=== PATIENT | male | born 1995 | race Caucasian/White ===

== ENCOUNTER 2024-12-29 07:47 | Outpatient (CLI) | payer OTHER, SELFPAY ==
--- NOTE | 2024-12-29 08:00 | CRLHL7_ITS ---
For Patients: As a result of the Century Cures Act, medical imaging exams and procedure reports are released immediately into your electronic medical record. You may view this report before your referring provider. If you have questions, please contact your health care provider. Indication: NASAL CONGESTION Technique: Performed without IV contrast Comparison: None available Findings: Frontal sinuses: Clear. Ethmoid sinuses: Clear. Maxillary sinuses: Mucosal thickening/mucous retention cyst measures 1.7 cm within the inferior left maxillary sinus. Small mucous retention cyst right maxillary sinus measures 6 millimeters. Small mucous retention cyst lateral aspect left maxillary sinus measures 5.6 millimeters. The maxillary sinus drainage pathways are patent on both sides. Sphenoid sinuses: Clear right sphenoid sinus with patency of the sinus drainage pathway. Mild mucosal thickening within the anterior left sphenoid sinus with partial obstruction of the sinus drainage pathway. Nasal Cavity: Postoperative changes of septoplasty. Asymmetry of the nasal cavity noted with the left side larger than the right side. Paradoxical turn of the right middle turbinate. 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 Multiple screws are located within the maxilla. Impression: 1. Mild bilateral maxillary sinus disease and left sphenoid sinus disease. 2. Multifocal postop changes. Please note that all CT scans at this facility use dose modulation, iterative reconstruction, and/or weight-based dosing when appropriate to reduce radiation dose to as low as reasonably achievable. Dictated by Donald Blount MD @ 12/29/2024 10:21:32 AM (Electronically Signed)
== END 2024-12-29 07:48 | disposition home or self-care (01) ==
LOC: CT 07:50
PROVIDERS: PCP Family Medicine; Visit Provider Otolaryngology
DX: R09.81 Nasal congestion (principal); J32.0 Chronic maxillary sinusitis; J32.3 Chronic sphenoidal sinusitis
CPT/HCPCS: 70486